=== PATIENT | male | born 1965 | race Caucasian/White ===

== ENCOUNTER → 2022-10-16 | Outpatient (CLI) | payer BC | LOC: LAB 11:52 → LAB SHORT 11:52 | DX: L08.0 Pyoderma (principal) | CPT/HCPCS: 87070; 87205 ==

== ENCOUNTER → 2022-11-01 | Outpatient (CLI) | payer BC ==
[2022-11-01 15:23] LABS: BASOPHILS ABSOLUTE AUTO 0.04 K/mm3 (0.00-0.23); BASOPHILS PERCENT AUTO 1 % (0-2); EOSINOPHILS ABSOLUTE AUTO 0.14 K/mm3 (0.00-0.68); EOSINOPHILS PERCENT AUTO 2 % (0-6); Hematocrit 44.7 % (37.0-53.0); IMMATURE GRAN ABSOLUTE AUTO 0.03 K/mm3 (0.00-0.10); IMMATURE GRAN PERCENT AUTO 1 % (0-1); LYMPHOCYTES ABSOLUTE AUTO 1.32 K/mm3 (0.84-5.20); LYMPHOCYTES PERCENT AUTO 23 % (21-46); MONOCYTES ABSOLUTE AUTO 0.32 K/mm3 (0.16-1.47); MONOCYTES PERCENT AUTO 6 % (4-13); Mean Corpuscular HGB Conc 33.6 g/dL (31.5-36.5); Mean Corpuscular Volume 89 fL (80-100); Mean Platelet Volume 10.2 fL (9.1-12.4); NEUTROPHILS ABSOLUTE AUTO 3.87 K/mm3 (1.96-9.15); NEUTROPHILS PERCENT AUTO 68 % (41-73); Platelet Count 268 K/mm3 (150-400); RDW Standard Deviation 45.1 fL (35.1-46.3); White Blood Cell Count 5.72 K/mm3 (4.00-11.30)
[2022-11-01 16:26] LABS: Albumin, Blood 3.6 g/dL (3.4-5.0); Albumin/Globulin Ratio 0.9 (0.8-1.8); Bilirubin, Total 0.5 mg/dL (0.1-1.0); Calcium, Blood 9.6 mg/dL (8.5-10.1); Creatinine, Blood 1.07 mg/dL (0.60-1.20); Potassium, Blood 3.5 mmol/L (3.5-5.5); Total Protein, Blood 7.6 g/dL (6.4-8.2)
== END | disposition home or self-care (01) ==
LOC: LAB SHORT 15:18
PROVIDERS: Chiropractor
DX: R07.89 Other chest pain (principal)
CPT/HCPCS: 80053; 84484; 85025; 85379

== ENCOUNTER → 2022-12-12 | Outpatient (CLI) | payer BC | END | disposition home or self-care (01) | LOC: LAB 08:17 → LAB SHORT 08:17 | DX: L73.9 Follicular disorder, unspecified (principal) | CPT/HCPCS: 88305; 88312 ==

== ENCOUNTER → 2022-12-12 | Outpatient (CLI) | payer BC | END | disposition home or self-care (01) | LOC: LAB SHORT 15:19 → LAB 15:19 | DX: L08.0 Pyoderma (principal) | CPT/HCPCS: 87070; 87205 ==

== ENCOUNTER 2023-05-19 06:19 | Emergency (ER) | payer OTHER ==
[~2023-05-19] VITALS: Ht 177.8 cm; Wt 111.1 kg
[2023-05-19 06:28] VITALS: BP 154/97
[2023-05-19] MEDS ORDERED: ACITRETIN25 MG PO (06:30)
[2023-05-19] MEDS ORDERED: LOSA50 PO (06:30)
[2023-05-19] MEDS ORDERED: TAMSULOSIN HCL0.4 M1 PO (06:30)
[2023-05-19] MEDS ORDERED: DULOXETINE HCL60 M1 PO (06:30)
[2023-05-19] MEDS ORDERED: ATOR10 PO (06:30)
[2023-05-19] MEDS ORDERED: ALLO300 PO (06:31)
== END 2023-05-19 06:43 | disposition home or self-care (01) ==
LOC: ER 06:19
DX: L23.7 Allergic contact dermatitis due to plants, except food (principal); Z88.1 Allergy status to other antibiotic agents
CPT/HCPCS: 96372; 99283; J3301

== ENCOUNTER 2024-04-28 09:14 | Day surgery (SDC) | payer BC ==
[~2024-04-28] VITALS: Ht 175.3 cm; Wt 109.2 kg
[~2024-04-28 09:14] MED LIST: ACITRETIN25 MG PO; ALLO300 PO; ATOR10 PO; CeFAZolin Sodium 2,000 MG VIAL ONE; DULOXETINE HCL60 M1 PO; LOSA50 PO; Lactated Ringer's 1,000 ML IV ONE; NS 0 ML IV ONE; TAMSULOSIN HCL0.4 M1 PO
[2024-04-28] MEDS ORDERED: Lactated Ringer's 1,000 ML IV ONE ×2 (09:28→12:04)
[2024-04-28] MEDS ORDERED: Tranexamic Acid 100 ML IV ONE (09:42)
[2024-04-28] MEDS ORDERED: NS 50 ML IV ONE (09:55)
[2024-04-28] MEDS ORDERED: Ropivacaine 0.2% HCl/Pf 2 MG/ML 20ML Vial ONE (10:05)
[2024-04-28] MEDS ORDERED: Lidocaine 1%-Epineph 1:100000 20 ML MDV INJ ONE (11:06)
[2024-04-28] MEDS ORDERED: EPINEPhrine HCl 1 MG/ML 1ML Amp XX ONE (11:07)
--- NOTE | 2024-04-28 11:12 | NUR ---
04/28/24 1112 Danielle Estrada 1ML EPI 1MG/1ML ADDED TO FIRST THREE 3L IRRIGATION BAGS OF LR.
[2024-04-28 13:11] VITALS: BP 147/89
--- NOTE | 2024-04-28 13:16 | NUR ---
04/28/24 1316 Fernanda Banks PT A&O x4, VSS, ABLE TO FOLLOW COMMANDS. PT EDUCATION PROVIDED TO PT BY GUILLERMO BANKS RN, AND ILIANA FIELD RN. ALL QUESTIONS WERE ANSWERED, CONCERNS ADDRESSED. 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 POLAR ICE PACK PROVIDED TO PT. PT DENIED PAIN AND NO NAUSEA. PT AWAITING RIDE HOME.
== END 2024-04-28 13:27 | disposition home or self-care (01) ==
LOC: ORSCSDS 09:14
PROVIDERS: Orthopaedic Surgery Sports Medicine
PROC: 0RBJ4ZZ Excision of Right Shoulder Joint, Percutaneous Endoscopic Approach (ICD-10-PCS; principal; 2024-04-28 10:15)
DX: M75.121 Complete rotator cuff tear or rupture of right shoulder, not specified as traumatic (principal); M75.41 Impingement syndrome of right shoulder; M75.21 Bicipital tendinitis, right shoulder; I10 Essential (primary) hypertension; G47.33 Obstructive sleep apnea (adult) (pediatric); E66.9 Obesity, unspecified; Z68.35 Body mass index [BMI] 35.0-35.9, adult; Z79.899 Other long term (current) drug therapy
CPT/HCPCS: J0171; J0690; J2795; J7120